=== PATIENT | male | born 1990 | race Caucasian/White ===

== ENCOUNTER → 2019-02-26 19:09 | Outpatient (CLI) | payer BC, SELFPAY | PROVIDERS: PCP Nurse Practitioner Family; Visit Provider Nurse Practitioner Family | DX: G47.33 Obstructive sleep apnea (adult) (pediatric) (principal) | CPT/HCPCS: 95806 ==

== ENCOUNTER 2020-06-06 18:47 | Emergency (ER) | payer BC, SELFPAY ==
[2020-06-06 19:02] VITALS: BP 128/85; PULSE 71; RESP 14; TEMP 36.6; O2SAT 97; BMI 47.3
--- NOTE | 2020-06-06 19:30 | HMH.EDPENT ---
ED Disposition Clinical Impression: Strep throat, HSV (herpes simplex virus) dendritic keratitis Disposition: Home, Self-Care Condition on Discharge: Good Instructions: Sore Throat Prescriptions: Azithromycin 250 mg PO DAILY 5 Days #6 tab Transmission Status: Pending to [facility] methylPREDNISolone [Medrol 4mg tab] 4 mg PO DIRECTED #21 tab Transmission Status: Pending to [facility] Valacyclovir HCl [Valtrex] 1,000 mg PO TID 7 Days #21 tab Transmission Status: Pending to [facility] Referrals: Sarahi Awad [Primary Care Provider] - - Critical Care Critical Care Time: No Attestation: On 06/06/20, the high probability of a clinically significant, sudden or life threatening deterioration of the following system(s) required my full and direct attention, intervention and personal management. The time I documented below is in addition to time spent performing reported procedures but includes the following listed in this critical care notation. Medical Decision Making - Medical Records Medical records reviewed: Yes: I reviewed the patient's medical records. - Sheldon Inquiry Pt receiving controlled substance: No Vital Signs: 06/06/20 19:02 Temperature 97.9 F Temperature Source Oral Pulse Rate [Right] 71 Respiratory Rate 14 Blood Pressure [Right Arm] 128/85 Blood Pressure Mean [Right Arm] 99 Blood Pressure Source [Right Arm] Automatic Cuff Blood Pressure Position [Right Arm] Sitting 02 Sat by Pulse Oximetry 97 Oxygen Delivery Method Room Air Orders (Tests/Meds): ED MEDICATIONS Discontinued Medications Generic Name Dose Route Start Last Admin Trade Name Freq PRN Reason Stop Dose Admin Acyclovir 800 mg 06/06/20 19:14 06/06/20 19:20 Zovirax 400mg Tablet PO 06/06/20 19:15 800 mg ONCE ONE Administration Ceftriaxone Sodium 1 gm 06/06/20 19:14 06/06/20 19:21 Rocephin 1gm Vial IM 06/06/20 19:15 1 gm ONCE ONE Administration Protocol Ketorolac Tromethamine 60 mg 06/06/20 19:17 06/06/20 19:20 Toradol 60mg/2ml Vial IM 06/06/20 19:18 60 mg ONCE ONE Administration Lidocaine HCl 0 ml 06/06/20 19:14 06/06/20 19:21 Lidocaine 1% 10ml Mdv IM 06/06/20 19:15 2.1 ml ONCE ONE Administration Orphenadrine Citrate 60 mg 06/06/20 19:17 06/06/20 19:20 Norflex 60mg/2ml Vial IM 06/06/20 19:18 60 mg ONCE ONE Administration Pediatric HENT HPI - General Chief complaint: Dental/Oral Stated complaint: Blisters in throat, r ear pain Time Seen by Provider: 06/06/20 19:30 Mode of Arrival: Ambulatory Source of Information: Patient Limitations: No Limitations Description of Symptoms (Recalled from ER Triage Doc. by RN): Pt states he has had a sore throat for a couple days, was COVID tested with a neg result, but still having a sore throat, ear ache and blisters inhis mouth. Pt has not followed up with PCP and request ER - History of Present Illness HPI Narrative: 30-year-old male presents the emergency department with an acute onset of sore throat and also some blisters on his ear and also in his throat as well. Patient was recently seen at [facility] on Tuesday and given ibuprofen. On Tuesday of this week he was COVID test that his test did result did come back yesterday is negative. Patient rates his pain 6 out of 10 classifies as sharp burning sensation in his throat. Patient denies any recent fever shakes or chills. Patient also denies any headache. Also denies any cough or shortness of breath. Patient states alleviating factors include cold fluids exacerbating factors include talking. - Related Data Home Medications Medication Instructions Recorded Confirmed lisinopriL [Lisinopril 10mg Tab] 20 mg PO DAILY 02/21/18 09/26/19 Previous Rx's Medication Instructions Recorded Azithromycin 250 mg PO DAILY 5 Days #6 tab 06/06/20 Valacyclovir HCl [Valtrex] 1,000 mg PO TID 7 Days #21 tab
[2020-06-06 19:41] VITALS: BP 132/80; PULSE 76; RESP 16; TEMP 36.6; O2SAT 99
== END 2020-06-06 19:45 | disposition home or self-care (01) ==
PROVIDERS: Emergency Provider Family Medicine; PCP Nurse Practitioner Family
DX: J02.0 Streptococcal pharyngitis (principal); B00.52 Herpesviral keratitis
CPT/HCPCS: 96372; 99281

== ENCOUNTER 2020-09-10 18:32 | Emergency (ER) | payer BC, SELFPAY ==
[2020-09-10 18:51] VITALS: BP 121/78; PULSE 57; RESP 18; O2SAT 99; BMI 45.5
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
[2020-09-10 20:17] VITALS: BP 119/81; PULSE 61; RESP 16; TEMP 36.8; O2SAT 98
== END 2020-09-10 20:22 | disposition home or self-care (01) ==
PROVIDERS: Emergency Provider Emergency Medicine; PCP Nurse Practitioner Family
DX: M54.16 Radiculopathy, lumbar region (principal); V40.0XXA Car driver injured in collision with pedestrian or animal in nontraffic accident, initial encounter; Y92.488 Other paved roadways as the place of occurrence of the external cause; I10 Essential (primary) hypertension; K21.9 Gastro-esophageal reflux disease without esophagitis; F41.9 Anxiety disorder, unspecified
CPT/HCPCS: 96372; 99281

== ENCOUNTER → 2020-09-18 14:39 | Outpatient (CLI) | payer BC, SELFPAY ==
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
--- NOTE | 2020-09-18 14:44 | XR_ITS ---
PROCEDURE: XR CERVICAL SPINE 3V CLINICAL INDICATION: CERVICALGIA COMPARISON: No exams were available for comparison FINDINGS: No fracture or dislocation. No lytic or blastic change. There is normal mineralization. The joint spaces are well-preserved. No significant degenerative/arthritic changes. No erosive changes evident. Other findings:There is straightening/reversal of the normal lordosis which may be due to patient positioning or muscle spasm. IMPRESSION: Straightening of cervical lordosis otherwise negative Dictated by: Charly Henderson MD 09/18/2020 15:10 Charly Henderson MD in [place] 09/18/2020 15:10
== END ==
PROVIDERS: PCP Nurse Practitioner Family; Visit Provider Nurse Practitioner Family
DX: M54.2 Cervicalgia (principal); M54.5 Low back pain
CPT/HCPCS: 72040; 72148; 76376

== ENCOUNTER 2020-11-25 07:00 | Outpatient (RCR) | payer BC, SELFPAY | END 2020-12-01 14:18 | disposition home or self-care (01) | LOC: PT.CARL 07:00 | PROVIDERS: PCP Nurse Practitioner Family; Visit Provider Nurse Practitioner Family | DX: M54.5 Low back pain (principal) | CPT/HCPCS: 97010; 97012; 97014; 97110; 97140; 97163; 97164; G0283 ==

== ENCOUNTER 2021-10-04 20:32 | Emergency (ER) | payer BC, SELFPAY ==
[2021-10-04 20:54] VITALS: BP 143/83; PULSE 85; RESP 18; TEMP 36.8; O2SAT 99; BMI 41.5
--- NOTE | 2021-10-04 21:16 | HMH.EDUTC ---
[facility] Disposition Clinical Impression: Viral syndrome, Exposure to COVID-19 virus Disposition: Home, Self-Care Condition on Discharge: Good Instructions: DI for Viral Syndrome, DI for COVID-19 (Suspected or Confirmed ), Preventing the Spread of Coronavirus Discharge Instructions Additional Instructions: Drink plenty of fluids. Take tylenol or ibuprofen for pain or fever. Take the medications as directed. Follow up with your regular doctor. GO TO THE ER FOR ANY WORSENING SYMPTOMS Quarantine until you know the results of your covid-19 test. If it is positive, the health department should call you and give you further instructions about your length of Quarantine and other things. Notify your school or workplace of your results and follow their instructions regarding return to work/school. Prescriptions: Brompheniramine/Pseudoephed/Dm [Bromfed Dm Cough Syrup] 5 ml PO Q6HP PRN #240 ml PRN Reason: Cough Transmission Status: Received by [facility] Ondansetron [Zofran 4mg ODT] 4 mg PO Q8HP PRN #20 tab PRN Reason: Nausea Transmission Status: Received by [facility] Azithromycin [Z-Sachin 250mg Tab*] 250 mg PO UD DOSE PK #6 tab Transmission Status: Received by [facility] Referrals: Judith Oneal APRN [Primary Care Provider] - Forms: Work/School Release Time of Disposition: 21:43 Medical Decision Making - Medical Records Medical records reviewed: No: I reviewed the patient's medical records. - Sheldon Inquiry Pt receiving controlled substance: No Vital Signs: 10/04/21 20:54 10/04/21 21:45 Temperature 98.2 F 98.2 F Temperature Source Oral Pulse Rate 85 Pulse Rate [Left] 85 Respiratory Rate 18 18 Blood Pressure 143/83 H Blood Pressure [Right Arm] 143/83 H Blood Pressure Mean [Right Arm] 103 02 Sat by Pulse Oximetry 99 - Lab Data Lab results reviewed: Yes: I reviewed the patient's lab results. Orders (Tests/Meds): ORDERS Category Date Time Status Covid-19 Nasal PCR ([facility]) Routine Lab 10/04/21 20:57 Received [facility] HPI - General Stated complaint: body pain,KIRBY Time Seen by Provider: 10/04/21 21:16 Mode of Arrival: Ambulatory Source of Information: Patient Limitations: No Limitations Description of Symptoms (Recalled from Triage Doc. by RN): pt was exposed to covid 10/02. pt c/o KIRBY, body aches, chills and congestion. HEENT Symptoms (Recalled from RN notes): Yes (KIRBY AND CONGESTION) Resp Symptoms (Recalled from RN notes): No Skin Symptoms (Recalled from RN notes): No MS Symptoms (Recalled from RN notes): No Functional Status (Recalled from RN notes): WNL - History of Present Illness Provider Complaint: He c/o head ache, runny nose and chest congestion for the past 1 day. He was exposed to covid-19 at his work. He denies shortness of breath. He is requesting a covid-19 test. - Related Data Home Medications Medication Instructions Recorded Confirmed ergocalciferol (vitamin D2) 1,250 50,000 unit PO WEEKLY cap 07/03/21 07/03/21 mcg (50,000 unit) capsule fluoxetine 20 mg capsule 20 mg PO DAILY cap 07/03/21 07/03/21 fluticasone propionate 50 1 spray INTRANASAL DAILY PRN g 07/03/21 07/03/21 mcg/actuation nasal spray,suspension multivitamin with mineral-iron 1 tab PO DAILY tab 07/03/21 07/03/21 fumarate 9 mg-folic acid 500 mcg tablet omeprazole 40 mg capsule,delayed 40 mg PO DAILY cap 07/03/21 07/03/21 release tizanidine 4 mg tablet 4 mg PO HS tab 07/03/21 07/03/21 Previous Rx's Medication Instructions Recorded Azithromycin [Z-Sachin 250mg Tab*] 250 mg PO UD DOSE PK #6 tab 10/04/21 Brompheniramine/Pseudoephed/Dm 5 ml PO Q6HP PRN #240 ml 10/04/21 [Bromfed Dm Cough Syrup] Ondansetron [Zofran 4mg ODT] 4 mg PO Q8HP PRN #20 tab 10/04/21 Allergies Allergy/AdvReac Type Severity Reaction Status Date / Time acetaminophen Allergy Unknown Verified 07/03/21 11:46 [From DARVOCET-N] propoxyphene Al
[2021-10-04 21:45] VITALS: BP 143/83; PULSE 85; RESP 18; TEMP 36.8
== END 2021-10-04 21:54 | disposition home or self-care (01) ==
PROVIDERS: Emergency Provider Nurse Practitioner Family; PCP Nurse Practitioner
DX: B34.9 Viral infection, unspecified (principal); Z20.822 Contact with and (suspected) exposure to COVID-19; R51.9 Headache, unspecified; F41.8 Other specified anxiety disorders; K21.9 Gastro-esophageal reflux disease without esophagitis; I10 Essential (primary) hypertension; F17.290 Nicotine dependence, other tobacco product, uncomplicated; Z79.899 Other long term (current) drug therapy
CPT/HCPCS: 99202; C9803; G0463; U0003; U0005

== ENCOUNTER 2021-10-11 22:53 | Emergency (ER) | payer BC, SELFPAY ==
[2021-10-11 22:54] VITALS: BP 128/72; PULSE 78; RESP 18; TEMP 36.5; O2SAT 97; BMI 41.5
--- NOTE | 2021-10-11 23:13 | CT_ITS ---
PROCEDURE INFORMATION: Exam: CTA Chest With Contrast Exam date and time: 10/11/2021 11:13 PM Age: 31 years old Clinical indication: Shortness of breath; Additional info: SOA TECHNIQUE: Imaging protocol: Computed tomographic angiography of the chest with contrast. 3D rendering (Not supervised by radiologist): MIP and/or 3D reconstructed images were created by the technologist. Radiation optimization: All CT scans at this facility use at least one of these dose optimization techniques: automated exposure control; mA and/or kV adjustment per patient size (includes targeted exams where dose is matched to clinical indication); or iterative reconstruction. Contrast material: ISOVUE 370; Contrast volume: 70 ml; Contrast route: INTRAVENOUS (IV); COMPARISON: CR XR CHEST 2V 10/11/2021 11:21 PM FINDINGS: Pulmonary arteries: Normal. No pulmonary emboli. Aorta: No thoracic aortic aneurysm or dissection. Lungs: Cluster of calcified granulomas in the posterior portion of the left upper lobe. No airspace consolidation. No evidence of pneumonia. Pleural spaces: Unremarkable. No pneumothorax. No pleural effusion. Heart: Normal heart size. No pericardial effusion. No appreciable coronary arterial calcification. Lymph nodes: Calcified left hilar lymph nodes compatible granulomatous disease. No enlarged/suspicious lymph nodes by CT criteria. Liver: The liver is only partially visualized, but appears enlarged, measuring greater than 16.5 cm in craniocaudal dimension. Spleen: Calcified granulomas in the spleen. The spleen is mildly enlarged measuring 12.8 cm in craniocaudal dimension. Stomach and bowel: Postsurgical changes of sleeve gastrectomy. Small hiatal hernia. Bones/joints: Mild multilevel degenerative disc disease. No acute fracture. Soft tissues: Unremarkable. IMPRESSION: 1. No evidence of pulmonary embolus. 2. No acute finding within the thorax.
--- NOTE | 2021-10-11 23:13 | XR_ITS ---
PROCEDURE INFORMATION: Exam: XR Chest Exam date and time: 10/11/2021 11:13 PM Age: 31 years old Clinical indication: Shortness of breath; Additional info: SOA TECHNIQUE: Imaging protocol: XR of the chest. Views: 2 views. COMPARISON: CR CXR1VP XR chest portable 06/14/2018 7:38 PM FINDINGS: Lungs: Unremarkable. No consolidation. Pleural spaces: No pleural effusion. No pneumothorax. Heart/Mediastinum: Normal heart size. Bones/joints: Unremarkable. IMPRESSION: No acute findings.
[2021-10-11 23:28] LABS: Adenovirus,PCR Not Detected (NotDetected); Bordetella Pertussis Not Detected (NotDetected); Chlamydophila Pneumoniae, PCR Not Detected (NotDetected); Coronavirus 19, PCR Not Detected (NotDetected); Coronavirus 229E Not Detected (NotDetected); Coronavirus NL63 Not Detected (NotDetected); Coronavirus OC43 Not Detected (NotDetected); Coronovirus HKU1,PCR Not Detected (NotDetected); Human Metapneumovirus Not Detected (NotDetected); Influenza A, PCR Not Detected (NotDetected); Influenza AH1, 2009 Not Detected (NotDetected); Influenza AH1, PCR Not Detected (NotDetected); Influenza AH3,PCR Not Detected (NotDetected); Influenza B, PCR Not Detected (NotDetected); Mycoplasma Pneumoniae, PCR Not Detected (NotDetected); Parainfluenza 1, PCR Not Detected (NotDetected); Parainfluenza 2, PCR Not Detected (NotDetected); Parainfluenza 3, PCR Not Detected (NotDetected); Parainfluenza 4, PCR Not Detected (NotDetected); Respiratory Syncytial Virus Not Detected (NotDetected)
[2021-10-11 23:30] LABS: Basophils # 0.1 K/mm3 (0-0.2); Basophils % 0.5 % (0.1-2.0); Eosinophils # 0.1 K/mm3 (0.0-0.4); Eosinophils % 0.9 % (0.1-12.0); Hematocrit 48.4 % (42.0-52.0); Hemoglobin 16.3 g/dL (14.1-18.0); Lymphocytes # 2.1 K/mm3 (0.7-4.5); Lymphocytes % 20.8 % (10-50); Mean Corpuscular HGB Conc 33.6 g/dL (31.8-35.4); Mean Corpuscular Volume 92.2 fl (80-94); Monocytes # 0.5 K/mm3 (0.1-1.0); Monocytes % 4.5 % (1.7-9.3); Neutrophils # 7.6 K/mm3 (1.8-7.8); Neutrophils % 73.2 % (37.0-80.0); Platelet Count 259 K/mm3 (142-424); Red Blood Count 5.25 M/mm3 (4.60-6.20); Red Cell Distribution Width 12.8 % (11.5-17.5); White Blood Count 10.3 K/mm3 (4.8-10.8)
[2021-10-11 23:36] LABS: Chloride 102 mmol/L (98-107); Potassium 3.9 mmoL/L (3.5-5.1); Sodium 140 mmol/L (136-145)
[2021-10-11 23:38] LABS: Alanine Aminotransferase 27 U/L (12-78); Aspartate Amino Transferase 34 U/L (17-59); Blood Urea Nitrogen 21 mg/dl (9-20); Creatinine Clearance Estimated 153 mL/min (50-200); Estimated Glomerular Filt Rate 114 ml/min (>60); GFR (African American) 137 ML/MIN (>60)
[2021-10-11 23:39] LABS: Albumin Level 4.4 g/dl (3.5-5.0); Albumin/Globulin Ratio 1.8 (1.1-1.8); Alkaline Phosphatase 77 U/L (38-126); Anion Gap 11.9 mEq/L (5-15); Calcium 9.4 mg/dl (8.4-10.2); Carbon Dioxide 30 mmol/L (22.0-30.0); Globulin 2.5 g/dL (1.3-3.2); Glucose 107 mg/dl (74-100); Total Protein,Serum 6.9 g/dl (6.3-8.2)
[2021-10-11 23:40] LABS: Lactic Acid 1.3 mmol/L (0.7-2.1)
[2021-10-11 23:43] LABS: Bilirubin,Total 0.1 mg/dl (0.2-1.3)
[2021-10-11 23:52] LABS: Erythrocyte Sedimentation Rate 2 mm/hr (0-15)
[2021-10-11 23:56] LABS: Procalcitonin 0.069 ng/mL (0.0-2.0)
[2021-10-11 23:57] LABS: C-Reactive Protein 1.4 mg/L (0-4)
[2021-10-12 00:43] LABS: Rhinovirus/Enterovirus Detected (NotDetected)
--- NOTE | 2021-10-12 02:09 | HMH.EDSOB ---
ED Disposition Clinical Impression: Viral upper respiratory illness Disposition: Home, Self-Care Condition on Discharge: Good Instructions: DI for Shortness of Breath Additional Instructions: use meds and see pcp for follow up Referrals: Patrizia Oneal PA [Primary Care Provider] - - Critical Care Critical Care Time: No Attestation: On 10/11/21, the high probability of a clinically significant, sudden or life threatening deterioration of the following system(s) required my full and direct attention, intervention and personal management. The time I documented below is in addition to time spent performing reported procedures but includes the following listed in this critical care notation. Medical Decision Making - Medical Records Medical records reviewed: Yes: I reviewed the patient's medical records. - Sheldon Inquiry Pt receiving controlled substance: No Sheldon was queried for this patient: No Vital Signs: 10/11/21 22:54 Temperature 97.7 F Temperature Source Oral Pulse Rate [Apical] 78 Respiratory Rate 18 Blood Pressure [Right Arm] 128/72 Blood Pressure Mean [Right Arm] 90 Blood Pressure Source [Right Arm] Automatic Cuff Blood Pressure Position [Right Arm] Sitting 02 Sat by Pulse Oximetry 97 Oxygen Delivery Method Room Air - Lab Data Lab results reviewed: Yes: I reviewed the patient's lab results. Lab Results 10/11/21 23:20: WBC 10.3, RBC 5.25, Hgb 16.3, Hct 48.4, MCV 92.2, MCH 31.0, MCHC 33.6, RDW 12.8, Plt Count 259, MPV 8.0, Neut % (Auto) 73.2, Lymph % (Auto) 20.8, [place] % (Auto) 4.5, Eos % (Auto) 0.9, Baso % (Auto) 0.5, Neut # (Auto) 7.6, Lymph # (Auto) 2.1, [place] # (Auto) 0.5, Eos # (Auto) 0.1, Baso # (Auto) 0.1, ESR 2 10/11/21 23:20: Sodium 140, Potassium 3.9, Chloride 102, Carbon Dioxide 30, Anion Gap 11.9, BUN 21 H, Creatinine 0.80, Estimated Creat Clear 153, Estimated GFR 114, Est GFR ( Amer) 137, Glucose 107 H, Calcium 9.4, Total Bilirubin 0.1 L, AST 34, ALT 27, Alkaline Phosphatase 77, C-Reactive Protein 1.4, Total Protein 6.9, Albumin 4.4, Globulin 2.5, Albumin/Globulin Ratio 1.8, Procalcitonin 0.069 10/11/21 23:20: Lactate 1.3 10/11/21 23:20: Chlamy pneumoniae PCR Not detected, Adenovirus (PCR) Not detected, B. pertussis DNA (PCR) Not detected, Coronavirus OC43 (PCR) Not detected, Coronavirus HKU1 (PCR) Not detected, Coronavirus 229E (PCR) Not detected, SARS-CoV-2 (PCR) Not detected, Coronavirus NL63 (PCR) Not detected, Human Metapneumovir PCR Not detected, Influenza A (H1) PCR Not detected, Influ A (H1N1/09) PCR Not detected, Influenza A (H3) PCR Not detected, Influenza Type A (PCR) Not detected, Influenza Type B (PCR) Not detected, M. pneumoniae (PCR) Not detected, Parainfluenza 1 (PCR) Not detected, Parainfluenza 2 (PCR) Not detected, Parainfluenza 3 (PCR) Not detected, Parainfluenza 4 (PCR) Not detected, RSV (PCR) Not detected, Entero/Rhino (PCR) Detected A Result diagrams: 10/11/21 23:20 10/11/21 23:20 Orders (Tests/Meds): ED MEDICATIONS Generic Name Dose Route Start Last Admin Trade Name Freq PRN Reason Stop Dose Admin Sodium Chloride 1,000 mls @ 999 mls/hr 10/11/21 23:15 10/11/21 23:34 Sod Chlor 0.9% 1000ml Bag IV 10/12/21 00:15 999 mls/hr .Q1H1M IFTIKHAR Administration Discontinued Medications Generic Name Dose Route Start Last Admin Trade Name Freq PRN Reason Stop Dose Admin Dexamethasone Sodium Phosphate 10 mg 10/11/21 23:15 10/11/21 23:34 Dexamethasone 4mg/Ml 5ml Mdv IV 10/11/21 23:16 10 mg ONCE ONE Administration Iopamidol 70 ml 10/11/21 23:43 10/11/21 23:44 Iopamidol-370 (76%);100ml Bottle IV 10/11/21 23:44 70 ml ONCE ONE Administration Ketorolac Tromethamine 30 mg 10/11/21 23:15 10/11/21 23:34 Ketorolac 30mg/Ml Vial IV 10/11/21 23:16 30 mg ONCE ONE Administration Sodium Chloride 40 ml 10/11/21 23:43 10/11/21 23:44 0.9 % Sodium Chloride 50 Ml Vial IV 10/11/21 23:44 40 ml ONCE ONE Administration Sodi
[2021-10-12 02:17] VITALS: BP 125/78; PULSE 80; RESP 19; TEMP 36.8; O2SAT 98
== END 2021-10-12 02:21 | disposition home or self-care (01) ==
PROVIDERS: Emergency Provider Emergency Medicine; PCP Physician Assistant
DX: J06.9 Acute upper respiratory infection, unspecified (principal); F41.8 Other specified anxiety disorders; K21.9 Gastro-esophageal reflux disease without esophagitis; F17.290 Nicotine dependence, other tobacco product, uncomplicated
CPT/HCPCS: 71046; 71275; 80053; 83605; 84145; 85025; 85651; 86140; 87040; 87581; 87632; 87798; 96365; 96375; 99283; C9803; Q9967; U0003; U0005

== ENCOUNTER 2022-02-07 22:03 | Emergency (ER) | payer BC, SELFPAY ==
[2022-02-07 22:03] VITALS: BP 141/84; PULSE 59; RESP 18; TEMP 36.7; O2SAT 98; BMI 42.2
--- NOTE | 2022-02-07 22:42 | XR_ITS ---
PROCEDURE INFORMATION: Exam: XR Chest Exam date and time: 02/07/2022 10:59 PM Age: 31 years old Clinical indication: Sternal or substernal pain; Additional info: Chest pain TECHNIQUE: Imaging protocol: XR of the chest. Views: 2 views. COMPARISON: CR XR CHEST 2V 10/11/2021 11:21 PM FINDINGS: Lungs: Unremarkable. No consolidation. Pleural spaces: Unremarkable. No pleural effusion. No pneumothorax. Heart/Mediastinum: Unremarkable. No cardiomegaly. Bones/joints: Unremarkable. IMPRESSION: No acute findings.
--- NOTE | 2022-02-07 22:42 | ECG_ITS ---
APPROVED REPORT Exam: Resting ECG HR:57 bpm ECG Measurements Heart Rate 57 AXES RI 130 P -31 QRSd 108 QRS 87 QT 352 T 43 QTc 345 Conclusion SINUS BRADYCARDIA BORDERLINE ECG UNCONFIRMED REPORT Electronically signed by : Trevor Stovall MD 02/08/2022 19:45:47
--- NOTE | 2022-02-07 23:05 | HMH.EDARPALP ---
ED Disposition Clinical Impression: Intermittent palpitations Disposition: Home, Self-Care Condition on Discharge: Good Instructions: DI for Palpitations Additional Instructions: see card for follow up and eval Referrals: Rekha Jacobsen APRN [Primary Care Provider] - - Critical Care Critical Care Time: No Attestation: On 02/07/22, the high probability of a clinically significant, sudden or life threatening deterioration of the following system(s) required my full and direct attention, intervention and personal management. The time I documented below is in addition to time spent performing reported procedures but includes the following listed in this critical care notation. Medical Decision Making - Medical Records Medical records reviewed: Yes: I reviewed the patient's medical records. - [place] Inquiry Pt receiving controlled substance: No Vital Signs: 02/07/22 22:03 02/07/22 23:13 02/07/22 23:30 Temperature 98.1 F Temperature Source Oral Pulse Rate 59 L 58 L Pulse Rate [Left Radial] 59 L Respiratory Rate 18 Blood Pressure 129/80 122/78 Blood Pressure [Right Arm] 141/84 H Blood Pressure Mean [Right Arm] 103 02 Sat by Pulse Oximetry 98 100 99 Oxygen Delivery Method Room Air Room Air Room Air 02/08/22 00:01 02/08/22 00:30 Temperature Temperature Source Pulse Rate 55 L 51 L Pulse Rate [Left Radial] Respiratory Rate Blood Pressure 111/68 123/87 Blood Pressure [Right Arm] Blood Pressure Mean [Right Arm] 02 Sat by Pulse Oximetry 97 99 Oxygen Delivery Method Room Air Room Air - Lab Data Lab results reviewed: Yes: I reviewed the patient's lab results. Lab Results 02/07/22 22:33: WBC 6.0, RBC 5.26, Hgb 16.2, Hct 48.2, MCV 91.8, MCH 30.9, MCHC 33.6, RDW 12.6, Plt Count 257, MPV 8.2, Neut % (Auto) 61.2, Lymph % (Auto) 31.6, Peach % (Auto) 3.8, Eos % (Auto) 2.1, Baso % (Auto) 1.2, Neut # (Auto) 3.6, Lymph # (Auto) 1.9, Peach # (Auto) 0.2, Eos # (Auto) 0.1, Baso # (Auto) 0.1 02/07/22 22:33: Sodium 139, Potassium 4.0, Chloride 106, Carbon Dioxide 27, Anion Gap 10.0, BUN 15, Creatinine 0.80, Estimated Creat Clear 153, Estimated GFR 114, Est GFR ( Amer) 137, Glucose 102 H, Calcium 8.9 02/07/22 22:33: Magnesium 1.8 02/07/22 22:33: Total Bilirubin 0.5, Direct Bilirubin 0.2, Conjugated Bilirubin 0.0, Indirect Bilirubin 0.3, Unconjugated Bilirubin 0.3, AST 27, ALT 19, Alkaline Phosphatase 77, Total Protein 7.2, Albumin 4.4 Result diagrams: 02/07/22 22:33 02/07/22 22:33 Orders (Tests/Meds): ED MEDICATIONS Discontinued Medications Generic Name Dose Route Start Last Admin Trade Name Freq PRN Reason Stop Dose Admin Aspirin 324 mg 02/07/22 22:43 02/07/22 23:11 Aspirin 81mg Chewable Tablet PO 02/07/22 22:44 324 mg ONCE ONE Administration ORDERS Category Date Time Status Basic Metabolic Panel Stat Lab 02/07/22 22:33 Results T4 (Thyroxine) Stat Lab 02/07/22 22:33 Results Thyroid Stimulating Hormone Stat Lab 02/07/22 22:33 Results Troponin I Q3H Lab 02/08/22 01:45 Ordered Troponin I Q3H Lab 02/08/22 04:45 Ordered Troponin I Stat Lab 02/07/22 22:33 Results Holter Monitor Req by Ami/ Stat Y 02/08/22 00:32 Ordered - Radiology Data #1 Image(s): Chest Image Reviewed: Yes I have reviewed radiologist's interpretation Preliminary Findings: Normal/NAD - ECG Data Tracing #1 Normal Sinus Rhythm: Yes Ischemic changes: non-specific ST-T wave changes - LUIS Score for Non-Stemi Age of Patient: 30-39 years old Heart Rate: 50-69 bpm Systolic Blood Pressure: 140-159 mmHg Serum Creatinine: 0.80-1.19 mg/dl CHF Killip Class: I-No CHF Other Risk Factors: None Non-Stemi Risk Score: 42 Medical Decision Narrative: pt with palpitations and stable exam and labs and has holter but will need card eval Arrhythmia/Palpitations HPI - General Chief Complaint: Chest Pain Stated Complaint: Chest Pain Time Seen by Provider: 02/07/22 23:05
[2022-02-07 23:13] VITALS: BP 129/80; PULSE 59; O2SAT 100
[2022-02-07 23:30] VITALS: BP 122/78; PULSE 58; O2SAT 99
[2022-02-07 23:36] LABS: Blood Urea Nitrogen 15 mg/dl (9-20); Calcium 8.9 mg/dl (8.4-10.2); Carbon Dioxide 27 mmol/L (22.0-30.0); Chloride 106 mmol/L (98-107); Creatinine Clearance Estimated 153 mL/min (50-200); Estimated Glomerular Filt Rate 114 ml/min (>60); GFR (African American) 137 ML/MIN (>60); Glucose 102 mg/dl (74-100); Sodium 139 mmol/L (136-145)
[2022-02-07 23:37] LABS: Basophils # 0.1 K/mm3 (0-0.2); Basophils % 1.2 % (0.1-2.0); Eosinophils # 0.1 K/mm3 (0.0-0.4); Eosinophils % 2.1 % (0.1-12.0); Hematocrit 48.2 % (42.0-52.0); Hemoglobin 16.2 g/dL (14.1-18.0); Lymphocytes # 1.9 K/mm3 (0.7-4.5); Lymphocytes % 31.6 % (10-50); Mean Corpuscular HGB Conc 33.6 g/dL (31.8-35.4); Mean Corpuscular Hemoglobin 30.9 pg (27.0-31.2); Mean Corpuscular Volume 91.8 fl (80-94); Mean Platelet Volume 8.2 fl (7.4-10.4); Monocytes # 0.2 K/mm3 (0.1-1.0); Monocytes % 3.8 % (1.7-9.3); Neutrophils # 3.6 K/mm3 (1.8-7.8); Neutrophils % 61.2 % (37.0-80.0); Platelet Count 257 K/mm3 (142-424); Red Blood Count 5.26 M/mm3 (4.60-6.20); Red Cell Distribution Width 12.6 % (11.5-17.5)
[2022-02-07 23:53] LABS: Magnesium 1.8 mg/dl (1.6-2.3)
[2022-02-07 23:55] LABS: Alanine Aminotransferase 19 U/L (12-78); Albumin Level 4.4 g/dl (3.5-5.0); Alkaline Phosphatase 77 U/L (38-126); Aspartate Amino Transferase 27 U/L (17-59); Bilirubin,Direct 0.2 mg/dl (0.0-0.4); Bilirubin,Indirect 0.3 mg/dL (0.0-0.9); Bilirubin,Total 0.5 mg/dl (0.2-1.3); Bilirubin,Unconjugated 0.3 mg/dL (0.0-1.1); Total Protein,Serum 7.2 g/dl (6.3-8.2)
[2022-02-08 00:01] VITALS: BP 111/68; PULSE 55; O2SAT 97
--- NOTE | 2022-02-08 00:07 | PC.NURSE ---
Updated pt on POC. No complaints at this time.
[2022-02-08 00:30] VITALS: BP 123/87; PULSE 51; O2SAT 99
[2022-02-08 00:45] VITALS: BP 109/46; PULSE 59; RESP 20; TEMP 36.9; O2SAT 98
--- NOTE | 2022-02-08 00:51 | PC.NURSE ---
TROP. STILL NOT RESULTED AFTER MULTIPLE CALLS TO LAB. PT DENIES CHEST PAIN. WCM.
--- NOTE | 2022-02-08 01:17 | PC.NURSE ---
Updated pt that we are still waiting on some lab results
[2022-02-08 01:40] VITALS: BP 142/96; PULSE 61; RESP 18; TEMP 36.9; O2SAT 99
[2022-02-08 01:44] LABS: Troponin I < 0.01 ng/ml (0.00-0.034)
[2022-02-08 01:47] LABS: T4 (Thyroxine) 8.3 ug/dl (5.53-11.0)
[2022-02-08 02:00] LABS: Thyroid Stimulating Hormone 5.94 uIU/mL (0.465-4.68)
== END 2022-02-08 01:50 | disposition home or self-care (01) ==
PROVIDERS: Emergency Provider Emergency Medicine; PCP Nurse Practitioner Family
DX: R00.2 Palpitations (principal); F41.8 Other specified anxiety disorders; K21.9 Gastro-esophageal reflux disease without esophagitis; I10 Essential (primary) hypertension; F17.210 Nicotine dependence, cigarettes, uncomplicated; Z79.899 Other long term (current) drug therapy
CPT/HCPCS: 71046; 80048; 80076; 83735; 84436; 84443; 84484; 85025; 93005; 93225; 93226; 99283

== ENCOUNTER 2022-08-20 08:57 | Emergency (ER) | payer OTHER, BC, SELFPAY ==
[2022-08-20 09:03] VITALS: BP 123/80; PULSE 61; RESP 17; TEMP 37; O2SAT 98; BMI 42.0
--- NOTE | 2022-08-20 09:23 | HMH.EDGENADL ---
Discharge Plan Disposition Patient Disposition: Home, Self-Care Condition: Good Chief Complaint: Wound/Laceration Prescriptions Prescriptions: No Action omeprazole 40 mg capsule,delayed release(DR/EC) 40 mg PO DAILY Label Comments: TAKE 1 CAPSULE BY MOUTH EVERY DAY 30 MINUTES BEFORE MORNING MEAL multivitamin [Multiple Vitamins] Tablet 1 tab PO DAILY albuterol sulfate 8.5 GM HFA aerosol inhaler 8.5 gm IH QID doxycycline monohydrate 150 MG capsule 100 mg PO Q12 ondansetron 4 MG tablet,disintegrating 4 mg PO Q8HP PRN (Reason: Nausea) Qty: 20 0RF Referrals Follow up/Referrals: Rekha Jacobsen APRN [Primary Care Provider] - See instructions Activity Restrictions/Add. Instructions Additional Instructions/Restrictions: At this time was felt you are safe to be discharged from the emergency department. If signs of infection do not hesitate to present for reevaluation. Please follow-up with your family doctor within 7 to 10 days for suture removal Clinical Impressions Clinical Impression: Hand laceration Discharge ED Provider: Ramu Keating General Adult HPI General Stated complaint: AO Drill RT Wrist @work 08/20/22 8:35am Time Seen by Provider: 08/20/22 09:20 History of Present Illness HPI narrative: Patient is a 32-year-old male with no pertinent past medical history presents emergency department for evaluation of laceration of his right hand. This happened at work, a drill bit caused a cut over the medial dorsal aspect of his right hand over top of his carpal joints, did not penetrate all the way through the hand to the other side. No other traumatic injuries at this time, last tetanus unknown. Related Data Home Medications Medication Instructions Recorded Confirmed albuterol sulfate 90 mcg/actuation 8.5 gm IH QID PNEUMONIA 10/11/21 02/12/22 aerosol inhaler doxycycline monohydrate 150 mg 100 mg PO Q12 PNEUMONIA 10/11/21 02/12/22 capsule multivitamin (Multiple Vitamins 1 tab PO DAILY 02/12/22 02/12/22 tablet) omeprazole 40 mg capsule,delayed 40 mg PO DAILY 02/12/22 02/12/22 release Previous Rx's Medication Instructions Recorded ondansetron 4 mg disintegrating 4 mg PO Q8HP PRN Nausea #20 tabs 10/04/21 tablet Allergies Allergy/AdvReac Type Severity Reaction Status Date / Time acetaminophen Allergy Unknown Verified 02/12/22 11:40 [From DARVOCET-N] propoxyphene Allergy Unknown Verified 02/12/22 11:40 [From DARVOCET-N] [facility] Medical History (Updated 08/20/22 @ 10:10 by Ramu Keating MD) Abnormal electrocardiography Bradycardia Chest pain Dizziness Dyspnea Gastroesophageal reflux disease Tobacco dependence syndrome Social History Smoking Status: Former smoker second hand exposure: Yes alcohol intake: never substance use type: denies use current occupational status: employed Travel in the last 8 weeks: Inside the [place] household members: significant other and children housing: house current occupational exposures/hazards: No caffeine: Yes ROS Obtained: Yes All systems reviewed & no additional complaints except as documented Physical Exam General General appearance: alert and in no apparent distress Head Head exam: atraumatic and normocephalic Eye Eye exam: Present PERRL and EOMI ENT ENT exam: Present mucous membranes moist Neck Neck exam: Present normal inspection Chest Chest inspection: Present normal inspection and symmetric chest wall rise Respiratory Respiratory exam: Present normal lung sounds bilaterally; Absent respiratory distress Cardiovascular Cardiovascular exam: Present regular rate and normal rhythm Abdominal Exam Abdominal exam: Present soft; Absent tenderness Extremities Exam Extremities exam: Present other (4 cm linear laceration over the dorsal aspect of the right hand that is hemostatic. Full range of motion at the wrist, CMC, PIP, DIP joints. Distal capi
--- NOTE | 2022-08-20 09:37 | PC.NURSE ---
suture supplies gathered and given to MD per MD request.
[2022-08-20 09:38] VITALS: BMI 42.0
[2022-08-20 10:00] VITALS: BP 130/84; PULSE 60; RESP 18; O2SAT 96
[2022-08-20 10:18] VITALS: BP 122/78; PULSE 62; RESP 18; TEMP 37; O2SAT 99
--- NOTE | 2022-08-20 10:21 | PC.NURSE ---
wound dressed and abx cream applied to wound
== END 2022-08-20 10:21 | disposition home or self-care (01) ==
PROVIDERS: Emergency Provider Emergency Medicine; PCP Nurse Practitioner Family
DX: S61.411A Laceration without foreign body of right hand, initial encounter (principal); W31.1XXA Contact with metalworking machines, initial encounter; Y99.0 Civilian activity done for income or pay; Z23 Encounter for immunization
CPT/HCPCS: 12002; 90471; 90715; 99283

== ENCOUNTER 2022-08-23 07:42 | Emergency (ER) | payer BC, SELFPAY ==
[2022-08-23 07:43] VITALS: BP 139/89; PULSE 67; RESP 18; TEMP 36.8; O2SAT 98; BMI 42.0
--- NOTE | 2022-08-23 07:53 | XR_ITS ---
FINAL REPORT CLINICAL HISTORY: laceration, pain FINDINGS: RIGHT HAND Three views demonstrate no acute fracture. There is no dislocation. The visualized joint spaces are normally aligned. There is dorsal hand soft tissue swelling. IMPRESSION: Dorsal hand soft tissue swelling with no acute bony abnormality. Reviewed, Interpreted and Dictated by Silvano Macario III, MD Transcribed by Madisyn Pederson Authenticated and [facility]
--- NOTE | 2022-08-23 07:54 | PC.NURSE ---
ed md at bedside for evaluation
[2022-08-23 08:01] VITALS: BP 106/62; PULSE 70; RESP 16; O2SAT 98
--- NOTE | 2022-08-23 08:08 | HMH.EDGENADL ---
Discharge Plan Disposition Patient Disposition: Home, Self-Care Condition: Good Prescriptions Prescriptions: New cephalexin 500 mg capsule 500 mg PO Q6H 7 Days Qty: 28 0RF ibuprofen 600 mg tablet 600 mg PO Q6H PRN (Reason: pain) Qty: 30 0RF No Action omeprazole 40 mg capsule,delayed release(DR/EC) 40 mg PO DAILY Label Comments: TAKE 1 CAPSULE BY MOUTH EVERY DAY 30 MINUTES BEFORE MORNING MEAL multivitamin [Multiple Vitamins] Tablet 1 tab PO DAILY albuterol sulfate 8.5 GM HFA aerosol inhaler 8.5 gm IH QID doxycycline monohydrate 150 MG capsule 100 mg PO Q12 ondansetron 4 MG tablet,disintegrating 4 mg PO Q8HP PRN (Reason: Nausea) Qty: 20 0RF Referrals Follow up/Referrals: Reinaldo Allen JR, MD [Physician] - See instructions Rekha Jacobsen APRN [Primary Care Provider] - See instructions Activity Restrictions/Add. Instructions Additional Instructions/Restrictions: You have been evaluated for thumb pain, swelling after laceration. Swelling is consistent with inflammation near the tendon, called tendinitis. Please take Keflex and ibuprofen every 6 hours. Follow-up with orthopedics. Return to the emergency department at once for any new or worsening symptoms, pain, redness, wound drainage, other concerns. Clinical Impressions Clinical Impression: Laceration, Tendonitis of finger Instructions Patient Instructions: DI for Tendinitis, DI for Laceration Repair -- Finger Discharge ED Provider: Krissy Peng Adult HPI General Chief complaint: PAIN Stated complaint: RT hand laceration w/inflammation, was pt 08/20/22 Time Seen by Provider: 08/23/22 08:03 Mode of Arrival: Ambulatory Limitations: No Limitations Description of Symptoms (Recalled from ER Triage Doc. by RN): PT TO ED AFTER INJURY TO RIGHT THUMB ON TUESDAY. RECEIVED STITCHES. REPORTS SWELLING AND PAIN TO RIGHT THUMB History of Present Illness HPI narrative: 32-year-old male presenting to the emergency department with right thumb pain. Incident happened on Tuesday, 3 days ago. He sustained a laceration to the dorsal aspect of his left hand. He had it repaired with stitches. Over the last 2 days it is become more painful and swollen. He has pain with thumb motion, especially abduction. No numbness, weakness, tingling in the finger. No redness, warmth, swelling, wound drainage. He says that x-rays were not performed on Tuesday. There was no fall or significant trauma. It was a simple laceration. Tetanus was updated. Not on antibiotics Related Data Home Medications Medication Instructions Recorded Confirmed albuterol sulfate 90 mcg/actuation 8.5 gm IH QID PNEUMONIA 10/11/21 02/12/22 aerosol inhaler doxycycline monohydrate 150 mg 100 mg PO Q12 PNEUMONIA 10/11/21 02/12/22 capsule multivitamin (Multiple Vitamins 1 tab PO DAILY 02/12/22 02/12/22 tablet) omeprazole 40 mg capsule,delayed 40 mg PO DAILY 02/12/22 02/12/22 release Previous Rx's Medication Instructions Recorded ondansetron 4 mg disintegrating 4 mg PO Q8HP PRN Nausea #20 tabs 10/04/21 tablet cephalexin 500 mg capsule 500 mg PO Q6H 7 days #28 caps 08/23/22 ibuprofen 600 mg tablet 600 mg PO Q6H PRN pain #30 tabs 08/23/22 Allergies Allergy/AdvReac Type Severity Reaction Status Date / Time acetaminophen Allergy Unknown Verified 02/12/22 11:40 [From DARVOCET-N] propoxyphene Allergy Unknown Verified 02/12/22 11:40 [From DARVOCET-N] [facility] Medical History (Updated 08/23/22 @ 09:09 by Krissy Peng DO) Abnormal electrocardiography Bradycardia Chest pain Dizziness Dyspnea Gastroesophageal reflux disease Tobacco dependence syndrome Family History (Updated 08/23/22 @ 08:02 by Farnaz Massey RN) Other No significant family history Social History (Updated 08/23/22 @ 08:02 by Farnaz Massey RN) Smoking Status: Current every day smoker tobacco type: e-cigarettes second hand exposure: Yes
--- NOTE | 2022-08-23 08:16 | PC.NURSE ---
rad notified of xray order
--- NOTE | 2022-08-23 08:21 | PC.NURSE ---
PT TO XR
--- NOTE | 2022-08-23 08:28 | PC.NURSE ---
PT RETURNED FROM XR
[2022-08-23 08:30] VITALS: BP 111/63; PULSE 63; RESP 16; O2SAT 95
--- NOTE | 2022-08-23 09:02 | PC.NURSE ---
ED MD AT BEDSIDE TO DISCUSS POC WITH PT
[2022-08-23 09:23] VITALS: BP 105/65; PULSE 76; RESP 18; TEMP 36.7; O2SAT 98
== END 2022-08-23 09:25 | disposition home or self-care (01) ==
PROVIDERS: Emergency Provider Emergency Medicine; PCP Nurse Practitioner Family
DX: M65.241 Calcific tendinitis, right hand (principal); R22.31 Localized swelling, mass and lump, right upper limb; R07.9 Chest pain, unspecified; R42 Dizziness and giddiness; K21.9 Gastro-esophageal reflux disease without esophagitis; F17.290 Nicotine dependence, other tobacco product, uncomplicated; R11.0 Nausea; R00.1 Bradycardia, unspecified; Z79.1 Long term (current) use of non-steroidal anti-inflammatories (NSAID); Z88.8 Allergy status to other drugs, medicaments and biological substances
CPT/HCPCS: 73130; 99213; G0463

== ENCOUNTER 2022-08-30 07:39 | Emergency (ER) | payer OTHER, BC, SELFPAY ==
--- NOTE | 2022-08-30 07:58 | PC.NURSE ---
stitches x4 removed from pt R hand/wrist area. Pt was here on 08-20-22 for laceration repair. Upon removed stitches wound was noted to have come open a small amount. Steri strips applied to wound. Pt tolerated well.
[2022-08-30 08:00] VITALS: BP 122/67; PULSE 64; RESP 16; TEMP 36.4; O2SAT 99
== END 2022-08-30 08:00 | disposition home or self-care (01) ==
LOC: ER 07:43
PROVIDERS: Emergency Provider Emergency Medicine; PCP Nurse Practitioner Family
DX: Z48.02 Encounter for removal of sutures (principal)

== ENCOUNTER 2022-09-16 09:12 | Emergency (ER) | payer BC, SELFPAY ==
[2022-09-16 09:20] VITALS: BP 130/65; PULSE 65; RESP 20; TEMP 36.5; O2SAT 98; BMI 43.2
[2022-09-16 09:39] LABS: UTC Influenza A Antigen Negative (Negative); UTC Influenza B Antigen Negative (Negative)
[2022-09-16 09:40] LABS: UTC Strep Screen (Rapid) Negative (Negative)
--- NOTE | 2022-09-16 10:14 | EXP.UTC ---
Discharge Plan Disposition Patient Disposition: Home, Self-Care Condition: Good Prescriptions Prescriptions: New azithromycin [Zithromax Z-Sachin] 250 mg tablet See Rx Instructions .ROUTE .COMPLEX 5 Days Qty: 6 0RF Rx Instructions: For 250 mg dose pack: take 500 mg today (day 1), then 250 mg for 4 days (days 2-5) No Action omeprazole 40 mg capsule,delayed release(DR/EC) 40 mg PO DAILY Label Comments: TAKE 1 CAPSULE BY MOUTH EVERY DAY 30 MINUTES BEFORE MORNING MEAL Referrals Follow up/Referrals: Rekha Jacobsen APRN [Primary Care Provider] - See instructions Clinical Impressions Clinical Impression: URI (upper respiratory infection) Stand Alone Forms Stand Alone Forms: Work/School Release Instructions Patient Instructions: Sore Throat Discharge ED Provider[place]bi [place] [facility] [place] General Stated complaint: congestion, body aches, sore throat Mode of Arrival: Ambulatory Source of Information: Patient Limitations: No Limitations Time Seen by Provider: 09/16/22 10:18 Description of Symptoms (Recalled from Triage Doc. by RN): PATIENT C/O BODY ACHES, SORE THROAT, COUGH, AND CHEST CONGESTION X 2 DAYS HEENT Symptoms (Recalled from RN notes): Yes Resp Symptoms (Recalled from RN notes): Yes Skin Symptoms (Recalled from RN notes): No MS Symptoms (Recalled from RN notes): No Functional Status (Recalled from RN notes): WNL History of Present Illness Provider Complaint: Patient states that he hasnt felt well for several days States that his daughter has strep throat States that he has been having body aches, sore throat, nasal congestion and feels like it is trying to move into his chest Related Data Home Medications Medication Instructions Recorded Confirmed omeprazole 40 mg capsule,delayed 40 mg PO DAILY GERD 02/12/22 09/16/22 release Previous Rx's Medication Instructions Recorded azithromycin 250 mg tablet See Rx Instructions PO .COMPLEX 5 09/16/22 (Zithromax Z-Sachin) days #6 tabs Allergies Allergy/AdvReac Type Severity Reaction Status Date / Time acetaminophen Allergy Unknown Verified 02/12/22 11:40 [From DARVOCET-N] propoxyphene Allergy Unknown Verified 02/12/22 11:40 [From DARVOCET-N] hydrocodone Allergy Verified 09/16/22 09:36 Worker's Comp Is this a Worker's Comp case?: No PFSH PFSH Medical History (Updated 09/16/22 @ 10:17 by Debbi Edwards APRN) Abnormal electrocardiography Anxiety Bradycardia Chest pain Depression Dizziness Dyspnea Gastroesophageal reflux disease Tobacco dependence syndrome Surgical History (Updated 09/16/22 @ 09:35 by Juliana Amaya RN) H/O gastric sleeve History of cholecystectomy History of tonsillectomy Family History (Updated 08/23/22 @ 08:02 by Farnaz Massey RN) Other No significant family history Social History (Updated 09/16/22 @ 09:35 by Juliana Amaya RN) Smoking Status: Current every day smoker tobacco type: e-cigarettes second hand exposure: Yes alcohol intake: never substance use type: denies use current occupational status: employed Travel in the last 8 weeks: [place] the [place] household members: significant other and children housing: house current occupational exposures/hazards: No caffeine: Yes ROS Obtained: Yes All systems reviewed & no additional complaints except as documented and Yes Systems reviewed as appropriate & no additional complaints except as documented Constitutional Constitutional: Reports system reviewed and no additional complaints, except as documented, Reports as per HPI, Reports body ache, Reports chills and Reports headache(s) ENT Ears, Nose, Mouth, and Throat: Reports system reviewed and no additional complaints, except as documented, Reports as per HPI, Reports headache(s), Reports nasal congestion, Reports nasal discharge and Reports sore throat Cardiovascular Cardiovascular: Reports system reviewed and no additional complaints
[2022-09-16 10:20] VITALS: BP 130/65; PULSE 65; RESP 20; TEMP 36.5; O2SAT 98
== END 2022-09-16 10:25 | disposition home or self-care (01) ==
PROVIDERS: Emergency Provider Nurse Practitioner; PCP Nurse Practitioner Family
DX: J06.9 Acute upper respiratory infection, unspecified (principal)
CPT/HCPCS: 87804; 87880; 99212; G0463

== ENCOUNTER 2023-05-07 22:57 | Emergency (ER) | payer BC, SELFPAY ==
[2023-05-07 22:59] VITALS: BP 109/64; PULSE 54; RESP 16; TEMP 36.9; O2SAT 100; BMI 44.9
[2023-05-08 00:17] LABS: Strep Scrn Group A (Rapid) Negative (Negative)
[2023-05-08 01:33] VITALS: BP 113/81; PULSE 61; RESP 16; TEMP 36.9; O2SAT 99
--- NOTE | 2023-05-08 01:33 | HMH.EDURI ---
Discharge Plan Disposition Patient Disposition: Home, Self-Care Prescriptions Prescriptions: New prednisone [prednisone] 20 mg tablet 20 mg PO BID Qty: 10 0RF cephalexin [cephalexin] 500 mg capsule 500 mg PO TID Qty: 21 0RF No Action omeprazole 40 mg capsule,delayed release(DR/EC) 40 mg PO DAILY Label Comments: TAKE 1 CAPSULE BY MOUTH EVERY DAY 30 MINUTES BEFORE MORNING MEAL azithromycin [Zithromax Z-Sachin] 250 mg tablet See Rx Instructions .ROUTE .COMPLEX 5 Days Qty: 6 0RF Rx Instructions: For 250 mg dose pack: take 500 mg today (day 1), then 250 mg for 4 days (days 2-5) Referrals Follow up/Referrals: Rekha Jacobsen APRN [Primary Care Provider] - See instructions Clinical Impressions Clinical Impression: Otitis media Instructions Patient Instructions: DI for Ear Pain-Adult Discharge ED Provider: Wen (ED)Gregorio URI/Sore Throat HPI General Chief Complaint: Upper Respiratory Infection Stated Complaint: Blisters on right side of throat Time Seen by Provider: 05/08/23 01:33 Mode of Arrival: Ambulatory Source of Information: Patient, Spouse and Medical Record Limitations: No Limitations Description of Symptoms (Recalled from ER Triage Doc. by RN): pt c/o sore throat, rt ear pain x 3 days History of Present Illness HPI Narrative: sore throat and ear pain over the last 3 days MD Complaint: sore throat and other (ear ache ) Onset (ago): day(s) Duration: constant Severity: moderate Exacerbating factors: swallowing Able to tolerate fluids by mouth: Yes Associated symptoms: denies other symptoms Treatments prior to arrival: none Related Data Home Medications Medication Instructions Recorded Confirmed omeprazole 40 mg capsule,delayed 40 mg PO DAILY GERD 02/12/22 09/16/22 release Previous Rx's Medication Instructions Recorded azithromycin 250 mg tablet See Rx Instructions PO .COMPLEX 5 09/16/22 (Zithromax Z-Sachin) days #6 tabs cephalexin 500 mg capsule 500 mg PO TID #21 caps 05/08/23 prednisone 20 mg tablet 20 mg PO BID #10 tabs 05/08/23 Allergies Allergy/AdvReac Type Severity Reaction Status Date / Time acetaminophen Allergy Unknown Verified 02/12/22 11:40 [From DARVOCET-N] propoxyphene Allergy Unknown Verified 02/12/22 11:40 [From DARVOCET-N] hydrocodone Allergy Verified 09/16/22 09:36 [facility] Disclaimer: The information contained in this section may have been updated after the patient was seen, as this information can be updated by other users. Medical History (Updated 05/08/23 @ 01:41 by Gregorio Carver MD (ED)) Abnormal electrocardiography Anxiety Bradycardia Chest pain Depression Dizziness Dyspnea Gastroesophageal reflux disease Tobacco dependence syndrome Surgical History (Updated 09/16/22 @ 09:35 by Juliana Amaya, ANGEL) H/O gastric sleeve History of cholecystectomy History of tonsillectomy Family History (Updated 08/23/22 @ 08:02 by Farnaz Massey RN) Other No significant family history Social History (Updated 09/16/22 @ 09:35 by Juliana Amaya RN) Smoking Status: Never smoker second hand exposure: Yes alcohol intake: never substance use type: denies use current occupational status: employed Travel in the last 8 weeks: [place] the [place] household members: significant other and children housing: house current occupational exposures/hazards: No caffeine: Yes ROS Obtained: Yes All systems reviewed & no additional complaints except as documented Physical Exam General General appearance: alert Head Head exam: normocephalic Eye Eye exam: Present PERRL and EOMI ENT ENT exam: Present mucous membranes moist Expanded ENT Exam TM/Canal exam: Bilateral TM: effusion Throat exam: Absent muffled voice Neck Neck exam: Present trachea midline Respiratory Respiratory exam: Absent respiratory distress Cardiovascular Cardiovascular exam: Present regular rate Extre
== END 2023-05-08 01:48 | disposition home or self-care (01) ==
PROVIDERS: Emergency Provider Emergency Medicine; PCP Nurse Practitioner Family
DX: H66.90 Otitis media, unspecified, unspecified ear (principal); J02.9 Acute pharyngitis, unspecified; F17.200 Nicotine dependence, unspecified, uncomplicated; F41.9 Anxiety disorder, unspecified; F32.A Depression, unspecified; K21.9 Gastro-esophageal reflux disease without esophagitis
CPT/HCPCS: 87430; 96372; 99283; 99284; J0696

== ENCOUNTER 2023-10-12 09:17 | Emergency (ER) | payer BC, SELFPAY ==
[2023-10-12 09:25] VITALS: BP 125/80; PULSE 66; RESP 20; TEMP 36.6; O2SAT 98; BMI 46.7
--- NOTE | 2023-10-12 09:35 | EXP.UTC ---
Discharge Plan Disposition Patient Disposition: Home, Self-Care Condition: Good Prescriptions Prescriptions: New amoxicillin-pot clavulanate 875-125 mg Tablet 1 tab PO Q12H Qty: 20 0RF guaifenesin [Mucinex] 600 mg tablet extended release 12hr 1,200 mg PO BID PRN (Reason: cough) Qty: 20 0RF prednisone [prednisone] 20 mg tablet 20 mg PO BID 5 Days Qty: 10 0RF No Action omeprazole 40 mg capsule,delayed release(DR/EC) 40 mg PO DAILY Patient Comments: TAKE 1 CAPSULE BY MOUTH EVERY DAY 30 MINUTES BEFORE MORNING MEAL azithromycin [Zithromax Z-Sachin] 250 mg tablet See Rx Instructions .ROUTE .COMPLEX 5 Days Qty: 6 0RF Rx Instructions: For 250 mg dose pack: take 500 mg today (day 1), then 250 mg for 4 days (days 2-5) prednisone [prednisone] 20 mg tablet 20 mg PO BID Qty: 10 0RF cephalexin [cephalexin] 500 mg capsule 500 mg PO TID Qty: 21 0RF Referrals Follow up/Referrals: Rekha Jacobsen APRN [Primary Care Provider] - See instructions Activity Restrictions/Add. Instructions Additional Instructions/Restrictions: *Monitor Temp, Over the counter Motrin or Tylenol as directed/as needed Tylenol every 4 hours and Motrin every 6 hours (as long as your family doctor has told you that you can take it) for fever or pain. and straight to ER if unable to lower temp less than 101.0 after medication given *Warm salt water gargles may help to soothe the throat *Throat Lozenges? *Warm fluids like tea with honey may help to soothe the throat? *Sleep elevated *Humidifier/Vaporizer Take medication as prescribed Use your inhaler as prescribed Follow up IMMEDIATELY for new or worsening symptoms or no Noticeable improvement over the next 48-72 hours. 911 for difficulty breathing or swallowing Clinical Impressions Clinical Impression: Bronchitis Sinusitis Qualifiers: Sinusitis location: unspecified location Chronicity: unspecified Qualified Code(s): J32.9 - Chronic sinusitis, unspecified Stand Alone Forms Stand Alone Forms: Work/School Release Instructions Patient Instructions: [place], DI for Sinusitis Discharge ED Provider: Debbi EdwardsH UTC HPI General Stated complaint: cough, diarehea Mode of Arrival: Ambulatory Source of Information: Patient Limitations: No Limitations Time Seen by Provider: 10/12/23 09:36 Description of Symptoms (Recalled from Triage Doc. by RN): PATIENT C/O CONGESTION, SINUS PRESSURE, AND DIARRHEA HEENT Symptoms (Recalled from RN notes): Yes Resp Symptoms (Recalled from RN notes): No Skin Symptoms (Recalled from RN notes): No MS Symptoms (Recalled from RN notes): No Functional Status (Recalled from RN notes): WNL History of Present Illness Provider Complaint: Patient states for the last week he has been having sinus pain and pressure, pressure behind his eyes, and some diarrhea States he has been taking OTC Medications but it hasnt helped much so today when the pressure behind his eyes was worse and he was coughing up some mucous he came in Related Data Home Medications Medication Instructions Recorded Confirmed omeprazole 40 mg capsule,delayed 40 mg PO DAILY GERD 02/12/22 09/16/22 release Previous Rx's Medication Instructions Recorded azithromycin 250 mg tablet See Rx Instructions PO .COMPLEX 5 09/16/22 (Zithromax Z-Sachin) days #6 tabs cephalexin 500 mg capsule 500 mg PO TID #21 caps 05/08/23 prednisone 20 mg tablet 20 mg PO BID #10 tabs 05/08/23 amoxicillin 875 mg-potassium 1 tab PO Q12H #20 tabs 10/12/23 clavulanate 125 mg tablet guaifenesin 600 mg tablet, 1,200 mg PO BID PRN cough #20 tabs 10/12/23 extended release 12 hr (Mucinex) prednisone 20 mg tablet 20 mg PO BID 5 days #10 tabs 10/12/23 Allergies Allergy/AdvReac Type Severity Reaction Status Date / Time acetaminophen Allergy Unknown Verified 02/12/22 11:40 [From DARVOCET-N] propoxyphene Allergy Unknown Verified 02/12/22 11:
[2023-10-12 09:43] VITALS: BP 125/80; PULSE 66; RESP 20; TEMP 36.6; O2SAT 98
== END 2023-10-12 09:56 | disposition home or self-care (01) ==
PROVIDERS: Emergency Provider Nurse Practitioner; PCP Nurse Practitioner Family
DX: J20.9 Acute bronchitis, unspecified (principal); R09.81 Nasal congestion; R05.9 Cough, unspecified; R19.7 Diarrhea, unspecified; K21.9 Gastro-esophageal reflux disease without esophagitis
CPT/HCPCS: 96372; 99212; 99214; G0463

== ENCOUNTER 2023-11-15 17:19 | Emergency (ER) | payer BC, SELFPAY ==
--- NOTE | 2023-11-15 17:21 | XR_ITS ---
PROCEDURE INFORMATION: Exam: XR Right Knee Exam date and time: 11/15/2023 5:21 PM Age: 33 years old Clinical indication: Patient HX: Fall on new 's deborah. C/O pain right knee TECHNIQUE: Imaging protocol: Radiologic exam of the right knee. Views: 3 views. COMPARISON: No relevant prior studies available. FINDINGS: Bones/joints: Normal. Soft tissues: Normal. IMPRESSION: No acute findings.
[2023-11-15 18:20] VITALS: BP 149/96; PULSE 78; RESP 20; TEMP 36.6; O2SAT 98; BMI 52.3
--- NOTE | 2023-11-15 18:43 | EXP.UTC ---
Discharge Plan Disposition Patient Disposition: Home, Self-Care Condition: Good Prescriptions Prescriptions: New ibuprofen [IBU] 800 mg tablet 800 mg PO TIDP PRN (Reason: Moderate Pain) Qty: 20 0RF methocarbamol 500 mg tablet 500 mg PO TID PRN (Reason: muscle spasm) Qty: 12 0RF methylprednisolone [Medrol (Sachin)] 4 mg tablets,dose pack See Rx Instructions .Route .COMPLEX 6 Days Qty: 21 0RF Rx Instructions: taper pack; No Action omeprazole 40 mg capsule,delayed release(DR/EC) 40 mg PO DAILY Patient Comments: TAKE 1 CAPSULE BY MOUTH EVERY DAY 30 MINUTES BEFORE MORNING MEAL Referrals Follow up/Referrals: Provider,Referral, MD [Primary Care Provider] - See instructions Activity Restrictions/Add. Instructions Additional Instructions/Restrictions: Start oral steriods tomorrow Start Ibuprofen tomorrow Take Muscle relaxers as prescribed You cannot take it and drive, operate machinery or care for small children while taking Muscle Relaxers *Keep this area active, no movement leads to more stiffness, However take it easy and avoid heavy lifting pushing or pulling *Follow up with you family doctor if no improvement for further treatment Follow up with your Family Doctor if no improvement or any worsening of symptoms Return if needed Straight to ER if any life threatening symptoms Clinical Impressions Clinical Impression: Sciatica Qualifiers: Laterality: right Qualified Code(s): M54.31 - Sciatica, right side Stand Alone Forms Stand Alone Forms: Work/School Release Instructions Patient Instructions: Sciatica, DI for Sciatica Discharge ED Provider: Debbi Edwards [facility] [place] HPI General Stated complaint: AO 11/14, right knee pain Mode of Arrival: Ambulatory Source of Information: Patient Limitations: No Limitations Time Seen by Provider: 11/15/23 18:43 Description of Symptoms (Recalled from Triage Doc. by RN): PATIENT IN BUTTOCK AREA THAT RADIATES DOWN BACK OF LEG HEENT Symptoms (Recalled from RN notes): No Resp Symptoms (Recalled from RN notes): No Skin Symptoms (Recalled from RN notes): No MS Symptoms (Recalled from RN notes): Yes Functional Status (Recalled from RN notes): WNL History of Present Illness Provider Complaint: Patient states that he got drunk on New Years and did the splits and since he has been having pain in his right buttock area that radiates down his buttock area into his right leg down to the knee States pain is worse if he tries to sit or lay on that side and worse with walking Related Data Home Medications Medication Instructions Recorded Confirmed omeprazole 40 mg capsule,delayed 40 mg PO DAILY GERD 02/12/22 11/15/23 release Previous Rx's Medication Instructions Recorded ibuprofen 800 mg tablet (IBU) 800 mg PO TIDP PRN Moderate Pain 11/15/23 #20 tabs methocarbamol 500 mg tablet 500 mg PO TID PRN muscle spasm #12 11/15/23 tabs methylprednisolone 4 mg tablets in See Rx Instructions .Route 11/15/23 a dose pack (Medrol (Sachin)) .COMPLEX 6 days #21 tabs Allergies Allergy/AdvReac Type Severity Reaction Status Date / Time acetaminophen Allergy Unknown Verified 02/12/22 11:40 [From DARVOCET-N] propoxyphene Allergy Unknown Verified 02/12/22 11:40 [From DARVOCET-N] hydrocodone Allergy Verified 09/16/22 09:36 Worker's Comp Is this a Worker's Comp case?: No [facility] Disclaimer: The information contained in this section may have been updated after the patient was seen, as this information can be updated by other users. Medical History (Updated 11/15/23 @ 18:59 by Debbi Edwards APRN) Abnormal electrocardiography Anxiety Bradycardia Chest pain Depression Dizziness Dyspnea Gastroesophageal reflux disease Tobacco dependence syndrome Surgical History (Updated 09/16/22 @ 09:35 by Juliana Amaya RN) H/O gastric sleeve History of cholecystectomy History of tonsillectomy Family History (Updated 08/23/22 @ 08:02 by Farnaz Massey RN) Other No significant family history Social History (Updated 09/16/22 @ 09:35 by Juliana Amaya RN) Smoking Status: Never smoker second hand exposure: Yes alcohol intake: never substance use type: denies use current occupational status: employed Travel in the last 8 weeks: Inside the [place] household members: significant other and children housing: house current occupational exposures/hazards: No caffeine: Yes ROS Obtained: Yes All systems reviewed & no additional complaints except as documented and Yes Systems reviewed as appropriate & no additional complaints except as documented Constitutional Constitutional: Reports system reviewed and no additional complaints, except as documented and Reports as per HPI Cardiovascular Cardiovascular: Reports system reviewed and no additional complaints, except as documented and Reports as per HPI Respiratory Respiratory: Reports system reviewed and no additional complaints, except as documented and Reports as per HPI Gastrointestinal Gastrointestingal: Reports system reviewed and no additional complaints, except as documented and as per HPI Musculoskeletal Musculoskeletal: Reports system reviewed and no additional complaints, except as documented, Reports as per HPI and Reports other Comments: Pain in right buttock area that radiates down buttock in his right leg to his knee pain worse with movement, laying on that side or sitting on that side Denies loss of control of bowel or bladder Physical Exam General General appearance: alert and in no apparent distress ENT ENT exam: Present mucous membranes moist Respiratory Respiratory exam: Present normal lung sounds bilaterally; Absent respiratory distress or wheezes Cardiovascular Cardiovascular exam: Present regular rate, normal rhythm and normal heart sounds Abdominal Exam Abdominal exam: Present soft and normal bowel sounds; Absent distention or tenderness Back Exam Back exam: Present tenderness and sciatic notch tenderness (R); Absent CVA tenderness (R) or CVA tenderness (L) Back 1 view image: 1. reports pain in right buttock that radiates down to right knee Denies known injury denies loss of control of bowel or bladder Neurological Exam Neurological exam: Present alert, oriented X3 and normal gait Medical Decision Making Sheldon Inquiry Pt receiving controlled substance: No Sheldon was queried for this patient: No Vital Signs: 11/15/23 18:20 Temperature 97.8 F Temperature Source Oral Pulse Rate [Left Brachial] 78 Respiratory Rate 20 Blood Pressure [Left Arm] 149/96 H Blood Pressure Mean [Left Arm] 113 Blood Pressure Source [Left Arm] Automatic Cuff Blood Pressure Position [Left Arm] Sitting 02 Sat by Pulse Oximetry 98 Oxygen Delivery Method Room Air Orders (Tests/Meds): ORDERS Category Date Time Status XR knee RT 3V Stat Exams 11/15/23 17:21 Completed Radiology Data #1: Image(s): Knee Image Reviewed: Yes I have reviewed radiologist's interpretation IMPRESSION: No acute findings.
[2023-11-15] MEDS: KETOROLAC 60MG/2ML VIAL 60 MG IM (19:02)
[2023-11-15] MEDS: METHYLPREDNISOLONE SOD SUCC 125MG VIAL 125 MG IM (19:02)
[2023-11-15 19:18] VITALS: BP 149/96; PULSE 78; RESP 20; TEMP 36.6; O2SAT 98
== END 2023-11-15 19:20 | disposition home or self-care (01) ==
PROVIDERS: Emergency Provider Nurse Practitioner
DX: M54.31 Sciatica, right side (principal); M25.561 Pain in right knee; X50.0XXA Overexertion from strenuous movement or load, initial encounter
CPT/HCPCS: 73562; 96372; 99212; 99214; G0463

== ENCOUNTER 2024-06-05 09:13 | Emergency (ER) | payer BC, SELFPAY ==
[2024-06-05 09:20] VITALS: BP 122/79; PULSE 54; RESP 20; TEMP 36.8; O2SAT 98; BMI 47.0
[2024-06-05 09:36] LABS: UTC Strep Screen (Rapid) Negative (Negative)
--- NOTE | 2024-06-05 09:56 | ED_ITS ---
Discharge Plan Disposition Patient Disposition: Home, Self-Care Condition: Good Prescriptions Prescriptions: New azithromycin [Zithromax] 250 mg tablet 250 mg PO UD DOSE PK Qty: 6 0RF Rx Instructions: Take two (2) tablets today, then one (1) tablet days #2 thru #5 methylprednisolone 4 mg Tablets,Dose Pack 4 mg PO DIRECTED 6 Days Qty: 21 0RF Rx Instructions: Take 1 pack as directed for 6 days [id number]-[id number] [Bromfed DM] 2-30-10 mg/5 mL Syrup 5 ml PO Q6H PRN (Reason: Cough) Qty: 240 0RF No Action omeprazole 40 mg capsule,delayed release(DR/EC) 40 mg PO DAILY Patient Comments: TAKE 1 CAPSULE BY MOUTH EVERY DAY 30 MINUTES BEFORE MORNING MEAL levocetirizine 5 mg tablet 5 mg PO DAILY Referrals Follow up/Referrals: Radha Silvestre APRN [Primary Care Provider] - See instructions Activity Restrictions/Add. Instructions Additional Instructions/Restrictions: Drink plenty of fluids. Take tylenol or ibuprofen for pain or fever. Take the medications as directed. Follow up with your regular doctor. GO TO THE ER FOR ANY WORSENING SYMPTOMS Clinical Impressions Clinical Impression: Viral syndrome Sinusitis Qualifiers: Sinusitis location: unspecified location Chronicity: unspecified Qualified Code(s): J32.9 - Chronic sinusitis, unspecified Stand Alone Forms Stand Alone Forms: Work/School Release Instructions Patient Instructions: Sinusitis, DI for Sinusitis Discharge ED Provider: Nikunj Lr [facility] General Stated complaint: weak sinus pressure Mode of Arrival: Ambulatory Source of Information: Patient Limitations: No Limitations Time Seen by Provider: 06/05/24 09:55 Description of Symptoms (Recalled from Triage Doc. by RN): PATIENT C/O WEAKNESS, DIZZINESS, HEADACHE, SINUS PRESSURE, SORE THROAT, BODY ACHES, AND COUGH X 2 DAYS HEENT Symptoms (Recalled from RN notes): Yes Resp Symptoms (Recalled from RN notes): Yes Skin Symptoms (Recalled from RN notes): No MS Symptoms (Recalled from RN notes): No Functional Status (Recalled from RN notes): WNL History of Present Illness Provider Complaint: She states that for the past 3 days she has had chills, malaise, sore throat and sinus congestion. Related Data Home Medications Medication Instructions Recorded Confirmed omeprazole 40 mg capsule,delayed 40 mg PO DAILY GERD 02/12/22 06/05/24 release levocetirizine 5 mg tablet 5 mg PO DAILY 06/05/24 06/05/24 Previous Rx's Medication Instructions Recorded azithromycin 250 mg tablet 250 mg PO UD DOSE PK #6 tabs 06/05/24 (Zithromax) [id number]-[id number]-IK 5 ml PO Q6H PRN Cough #240 mL 06/05/24 2 mg-30 mg-10 mg/5 mL oral syrup (Bromfed DM) methylprednisolone 4 mg tablets in 4 mg PO DIRECTED 6 days #21 tabs 06/05/24 a dose pack Allergies Allergy/AdvReac Type Severity Reaction Status Date / Time acetaminophen Allergy Unknown Verified 02/12/22 11:40 [From DARVOCET-N] propoxyphene Allergy Unknown Verified 02/12/22 11:40 [From DARVOCET-N] hydrocodone Allergy Verified 09/16/22 09:36 Worker's Comp Is this a Worker's Comp case?: No [facility] Disclaimer: The information contained in this section may have been updated after the patient was seen, as this information can be updated by other users. Medical History (Updated 06/05/24 @ 10:18 by Nikunj Lr APRN) Depression Anxiety Dyspnea Chest pain Dizziness Bradycardia Gastroesophageal reflux disease Tobacco dependence syndrome Abnormal electrocardiography Surgical History (Updated 09/16/22 @ 09:35 by Juliana Amaya RN) H/O gastric sleeve History of tonsillectomy History of cholecystectomy Family History (Updated 08/23/22 @ 08:02 by Farnaz Massey RN) Other No significant family history Social History (Updated 09/16/22 @ 09:35 by Juliana Amaya RN) Smoking Status: Never smoker second hand exposure: Yes alcohol intake: never substance use type: denies use current occupational status: employed Travel in the last 8 weeks: [place] the [place] household members: significant other and children housing: house current occupational exposures/hazards: No caffeine: Yes ROS Obtained: Yes All systems reviewed & no additional complaints except as documented Constitutional Constitutional: Reports chills and Reports fever(s) Eyes Eyes: Denies eye discharge ENT Ears, Nose, Mouth, and Throat: Reports as per HPI Cardiovascular Cardiovascular: Denies chest pain Respiratory Respiratory: Denies chest congestion and Reports cough Gastrointestinal Gastrointestingal: Reports nausea; Denies abdominal pain, constipation, cramping, diarrhea or vomiting Musculoskeletal Musculoskeletal: Denies arthralgias Integumentary/Breasts Skin/Breast: Denies rash Neurologic Neurologic: Denies paresthesias Physical Exam General General appearance: alert and in no apparent distress Eye Eye exam: Present normal appearance, PERRL and EOMI ENT ENT exam: Present mucous membranes moist and normal external ear exam Expanded ENT Exam External ear exam: Present normal external inspection TM/Canal exam: Bilateral TM: erythema and bulging Nose exam: Absent sinus tenderness Nasal speculum exam: Bilateral: normal Mouth exam: Present normal external inspection; Absent drooling Teeth exam: Present normal inspection Throat exam: Present tonsillar erythema and tonsillomegaly Neck Neck exam: Present normal inspection, full ROM and trachea midline; Absent tenderness, lymphadenopathy or thyromegaly Chest Chest inspection: Present normal inspection and symmetric chest wall rise; Absent tenderness or rash Respiratory Respiratory exam: Present normal lung sounds bilaterally; Absent respiratory distress, wheezes, stridor or accessory muscle use Cardiovascular Cardiovascular exam: Present regular rate, normal rhythm and normal heart sounds Abdominal Exam Abdominal exam: Present soft; Absent distention, tenderness, guarding, rebound or rigidity Extremities Exam Extremities exam: Present normal inspection, full ROM and normal capillary refill; Absent tenderness or calf tenderness Back Exam Back exam: Present normal inspection and full ROM; Absent tenderness Neurological Exam Neurological exam: Present alert and oriented X3 Psychiatric Psychiatric exam: Present normal affect and normal mood Skin Skin exam: Present warm, dry, intact and normal color Lymphatic Lymphatic Findings: no adenopathy Medical Decision Making Medical Records Medical records reviewed: No I reviewed the patient's medical records. Sheldon Inquiry Pt receiving controlled substance: No Vital Signs: 06/05/24 09:20 Temperature 98.2 F Temperature Source Oral Pulse Rate [Left Brachial] 54 L Respiratory Rate 20 Blood Pressure [Left Arm] 122/79 Blood Pressure Mean [Left Arm] 93 Blood Pressure Source [Left Arm] Automatic Cuff Blood Pressure Position [Left Arm] Sitting 02 Sat by Pulse Oximetry 98 Lab Data Lab Results 06/05/24 09:27: Strep Scn Rapid Clinic Negative Orders (Tests/Meds): ORDERS Category Date Time Status Strep Screen Confirmation Stat Micro 06/05/24 09:27 Received
[2024-06-05 10:20] VITALS: BP 122/79; PULSE 54; RESP 20; TEMP 36.8; O2SAT 98
== END 2024-06-05 10:22 | disposition home or self-care (01) ==
PROVIDERS: Emergency Provider Nurse Practitioner Family; PCP Nurse Practitioner Adult Health
DX: J01.90 Acute sinusitis, unspecified (principal); R07.0 Pain in throat; R53.1 Weakness; B34.9 Viral infection, unspecified
CPT/HCPCS: 87880; 99212; 99214; G0463